=== PATIENT | female | born 1985 | race Caucasian/White ===

== ENCOUNTER 2020-10-20 03:36 | Inpatient (IN) | payer SELFPAY ==
[2020-10-20] MEDS ORDERED: cefTRIAXone\\ROCEPHIN 1 GM VIAL ONE (05:17)
[2020-10-20] MEDS ORDERED: HYDROcodone/Acetaminophen 5/325 mg Tablet PO PRN (05:27)
[2020-10-20] MEDS ORDERED: Promethazine HCl 12.5 MG in Sodium Chloride 0.9% 50 ML IVPB PRN (05:27)
[2020-10-20] MEDS ORDERED: hydrALAZINE 20 MG/ML VIAL SLOW IVP PRN (05:27)
[2020-10-20] MEDS ORDERED: Guaifenesin DM 100-10/5 ML UDCUP PO PRN (05:27)
[2020-10-20] MEDS ORDERED: Ondansetron PF 4 MG/2 ML Vial IVP PRN (05:27)
[2020-10-20] MEDS ORDERED: Acetaminophen 325 MG TAB PO PRN (05:27)
[2020-10-20] MEDS ORDERED: cloNIDine 0.1 MG TAB PO PRN (05:27)
[2020-10-20] MEDS ORDERED: Labetalol HCl 100 MG/20 ML VIAL SLOW IVP PRN (05:27)
[2020-10-20] MEDS ORDERED: Electrolyte Replacement Protocol 1 EACH FS SCH (05:30)
--- NOTE | 2020-10-20 05:38 | PDOC.HHP ---
Hospitalist HPI - History of Present Illness weakness, fatigue History of Present Illness: Patient is a 35 year old female transferred from [place] for symptomatic anemia. Patient has a medical history of gastric bypass done in 2010, she recently moved back to [place] to live with family and has not been taking her recommended b12 and other vitamins for over a year, she reports symptoms of weakness, fatigue, shortness of breath, pallor for a month or so. Patient has a history of chronic anemia due to gastric bypass surgery. She reportedly gets blood transfusions approximately every 6 months when she becomes symptomatic. She reports that she has not had a transfusion in at least 2 years due to social situations and lack of insurance. Patient recently relocated to this area to live with family while she goes through divorce. She reports that her family became more concerned about her condition when she came to live with them a few days ago. Patient has not had a menstrual period for least 6 months. Labs from transferring facility notable for hgb 4, positive UA. patient to be admitted for transfusion and anemia management. she denies melena/hematochezia Hospitalist ROS - Review of Systems Constitutional: reports: weakness. denies: fever, chills, sweats, malaise, other Eyes: denies: pain, vision change, conjunctivae inflammation, eyelid inflammation, redness, other ENT: denies: ear pain, ear discharge, nose pain, nose discharge, nose congestion, mouth pain, mouth swelling, throat pain, throat swelling, other Respiratory: reports: shortness of breath. denies: cough, dry, hemoptysis, SOB with excertion, pleuritic pain, sputum, wheezing, other Cardiovascular: denies: chest pain, palpitations, orthopnea, paroxysmal noc. dyspnea, edema, light headedness, other Gastrointestinal: denies: nausea, vomiting, abdominal pain, diarrhea, constipation, melena, hematochezia, other Genitourinary: denies: dysuria, frequency, incontinence, hematuria, retention, other Musculoskeletal: denies: neck pain, shoulder pain, arm pain, back pain, hand pain, leg pain, foot pain, other Skin: reports: other (pallor). denies: rash, lesions, gena, bruising Neurological: denies: weakness, numbness, incoordination, change in speech, confusion, seizures, other All other systems reviewed; all pertinent +/- noted in HPI/Subj Hospitalist History - Past Medical History Other Medical History: gastric bypass related b12 deficiency anemia CHF - Past Surgical History Other Surgical History: gastric bypass DNC x2 Surgical history of section Notes: x3 Surgical history of gastric bypass Surgical history of laparotomy Surgical history of tonsillectomy. - Family History Family History: reports: no pertinent history - Social History Tobacco Type: cigarettes Drugs: reports: methamphetamine - Exam General Appearance: NAD, awake alert General - other findings: pale Eye: PERRL, anicteric sclera ENT: normocephalic atraumatic, no oropharyngeal lesions, moist mucosa Neck: supple, symmetric, no JVD, no thyromegaly, no lymphadenopathy, no carotid bruit Heart: RRR, no murmur, no gallops, no rubs, normal peripheral pulses Respiratory: CTAB, no wheezes, no rales, no ronchi, normal chest expansion, no tachypnea, normal percussion Gastrointestinal: soft, non-tender, non-distended, normal bowel sounds, no palpable masses, no hepatomegaly, no splenomegaly, no bruit Extremities: no cyanosis, no clubbing, no edema Skin: normal turgor, no lesions, no rashes Neurological: cranial nerve grossly intact, normal sensation to touch, no weakness, no focal deficits, no new deficit Musculoskeletal: normal tone, normal strength, no muscle wasting Psychiatric: normal affect, normal behavior, A&O x 3 Hospitalist Results - Labs Additional comment: VITAL SIGNS SunOct 20, 2020 03:41 MARINA Warner Cory BP: 111/67 Pulse: 76 Resp: 18 Temp: 98.4 (Oral) Pain: 0 O2 sat: 100 on (Room Air) Time: 10/20/2020 03:41. labs, ED documents, imaging reports reviewed Hospitalist H&P A/P - Plan Plan: Patient is a 35 year old female transferred from [place] for symptomatic anemia. # symptomatic anemia # b12 deficiency secondary to gastric bypass history of gastric bypass and has not been taking her recommended b12 and other vitamins for over a year, she reports symptoms of weakness, fatigue, shortness of breath, pallor for a month or so. She gets blood transfusions approximately every 6 months when she becomes symptomatic, however has not had one in 2 years due to social situations and lack of insurance. Labs from transferring facility notable for hgb 4, positive UA. patient to be admitted for transfusion and anemia management. - admit to floor - recheck cbc/cross match - transfuse 2u pRBC - likely will need 6-7 units total based on previous admissions - b12/iron panel ordered # amenorrhea no menstration in 6 months or so, likely due to nutrition but will order test - follow urine test # UTI - found on outside hospital UA - ceftriaxone - urine culture DVT ppx - SCD full code
[2020-10-20 06:13] LABS: Hemoglobin 4.6 g/dL (12.0-16.0); Mean Corpuscular Hemoglobin 15.5 pg (27.0-31.0); Mean Corpuscular Volume 59.6 fL (78.0-98.0); Platelet Count 192 thou/uL (130-400); RBC Distribution Width 20.5 % (11.5-14.5); Red Blood Cell (RBC) Count 2.96 mill/uL (4.20-5.40); Reflex for Review?? YES; White Blood Cell (WBC) Count 6.9 thou/uL (4.8-10.8)
[2020-10-20 06:29] LABS: Iron 11 ug/dL (50-170); Iron Binding Capacity, Total 521 mcg/dL (265-497)
[2020-10-20 06:31] LABS: #Basophils 0.1 thou/uL (0.0-0.2); #Lymphocytes 1.7 thou/uL (1.20-3.40); #Monocytes 0.4 thou/uL (0.11-0.59); #Neutrophils 4.7 thou/uL (1.40-6.50); %Basophils 1.1 % (0.0-1.0); %Eosinophils 0.6 % (0.0-10.0); %Lymphocytes 24.9 % (21.0-51.0); %Monocytes 5.5 % (0.0-10.0); %Neutrophils 67.9 % (42.0-75.0); Hypochromia MODERATE=16-30 cells (100X) (0-5/hpf); Lymphocytes 22 % (21-51); MDiff Complete? YES; Monocytes 1 % (0-10); Neutrophil 77 % (42-75); Platelet Morphology Comment Appears Adequate
[2020-10-20 06:57] LABS: #Monocytes 0.4 thou/uL (0.11-0.59); #Neutrophils 5.4 thou/uL (1.40-6.50); %Basophils 0.5 % (0.0-1.0); %Eosinophils 0.6 % (0.0-10.0); %Monocytes 5.3 % (0.0-10.0); %Neutrophils 68.6 % (42.0-75.0); Hemoglobin 4.5 g/dL (12.0-16.0); Hypochromia MODERATE=16-30 cells (100X) (0-5/hpf); INR-International Normal Ratio 1.1; Lymphocytes 18 % (21-51); MDiff Complete? YES; Mean Corpuscular HGB CONC 25.7 g/dL (32.0-36.0); Mean Corpuscular Volume 58.4 fL (78.0-98.0); Mean Platelet Volume 8.9 fL (7.4-10.4); Monocytes 6 % (0-10); Neutrophil 76 % (42-75); Platelet Count 198 thou/uL (130-400); Platelet Morphology Comment Appears Adequate; Prothrombin Time 14.7 sec (12.0-14.7); RBC Distribution Width 20.3 % (11.5-14.5); Red Blood Cell (RBC) Count 2.97 mill/uL (4.20-5.40); Reflex for Review?? NO; White Blood Cell (WBC) Count 7.8 thou/uL (4.8-10.8)
[2020-10-20 07:00] LABS: Ferritin Less than 2.00 ng/mL (10-291); Vitamin B12 281 pg/mL (211-911)
--- NOTE | 2020-10-20 07:38 | RAD ---
XR Chest 1 View Portable History: Dyspnea Comparison: None. Findings: Lungs are clear. No pneumothorax or effusion. Cardiac silhouette and mediastinal contours a re within normal limits. Impression: No acute intrathoracic abnormality.
[2020-10-20 07:48] LABS: Bacteria/HPF 4+ HPF (None Seen); Bilirubin Negative (Negative); Blood, Urine Negative (Negative); Clarity Turbid (Clear); Glucose, Urine (Dipstick) Normal (Negative); Ketone, Urine Negative (Negative); Leukocyte 250 Leu/uL (Negative); Nitrite 2+ (Negative); Protein, Urine (Dipstick) Negative (Neg-Trace); RBC/HPF 0-3 HPF (0-3); Specific Gravity, Urine 1.016 (1.002-1.036); Urobilinogen Normal mg/dL (Less than 2)
[2020-10-20 07:49] LABS: Pregnancy Test - Urine (BHCG) Negative (Negative); Pregu Control Background? CLEAR/WHITE (CLR/WHITE); Pregu Control Bar Appear? YES (CONTROL BAR); Specific Gravity 1.016 (1.002-1.036)
[2020-10-20] MEDS ORDERED: Calcium/Multivitamins W-Iron 1 TAB TAB PO SCH (09:00)
[2020-10-20 10:50] VITALS: BMI 19.5
--- NOTE | 2020-10-20 12:01 | PDOC.HOSPP ---
- Subjective Encounter Date: 10/20/20 Encounter Time: 11:47 Subjective: no complaints! - Objective Vital Signs & Weight: Vital Signs (12 hours) Temp Pulse Pulse Resp BP BP Pulse Ox 10/20/20 10:48 97.6 F 78 16 113/75 10/20/20 09:15 98.2 F 77 16 104/61 100 10/20/20 08:34 97.8 F 82 16 101/65 100 Weight Weight 107 lb I&O: 10/19/20 10/20/20 10/21/20 06:59 06:59 06:59 Intake Total 0 Balance 0 Result Diagrams: 10/20/20 05:58 - Exam Eye - other findings: pale mucous membranes Neck: supple Heart: RRR, no murmur Respiratory: CTAB Gastrointestinal: soft, non-tender, non-distended, normal bowel sounds Extremities: no edema Hosp A/P (1) HIRA (iron deficiency anemia) Code(s): D50.9 - IRON DEFICIENCY ANEMIA, UNSPECIFIED Status: Acute (2) Status post gastric surgery Code(s): Z98.890 - OTHER SPECIFIED POSTPROCEDURAL STATES Status: Chronic (3) UTI (urinary tract infection) Status: Acute Qualifiers: Hematuria presence: without hematuria - Plan transfusion in progress, target Hg 7 will give iv iron post transfusion urine C&S
[2020-10-20] MEDS: Cyanocobalamin 1000 MCG/ML VIAL IM SCH (12:09)
[2020-10-20] MEDS: Famotidine 20 MG TAB PO SCH ×2 (12:09→20:19)
[2020-10-20 13:13] LABS: Hemoglobin 7.1 g/dL (12.0-16.0); Platelet Count 177 thou/uL (130-400)
[2020-10-20 18:07] LABS: Hemoglobin 8.6 g/dL (12.0-16.0); Platelet Count 205 thou/uL (130-400)
[2020-10-20 23:46] LABS: Hemoglobin 7.8 g/dL (12.0-16.0); Platelet Count 175 thou/uL (130-400)
[2020-10-21] MEDS: cefTRIAXone\\ROCEPHIN 1 GM in Sodium Chloride 0.9% 100 ML IVPB SCH (05:07)
[2020-10-21 06:06] LABS: INR-International Normal Ratio 1.1; Prothrombin Time 14.1 sec (12.0-14.7)
[2020-10-21 06:20] LABS: #Basophils 0.1 thou/uL (0.0-0.2); #Eosinphils 0.1 thou/uL (0.0-0.7); #Lymphocytes 1.7 thou/uL (1.20-3.40); #Monocytes 0.6 thou/uL (0.11-0.59); #Neutrophils 3.9 thou/uL (1.40-6.50); %Basophils 1.1 % (0.0-1.0); %Eosinophils 1.1 % (0.0-10.0); %Lymphocytes 26.3 % (21.0-51.0); %Monocytes 9.6 % (0.0-10.0); %Neutrophils 61.9 % (42.0-75.0); Hemoglobin 7.7 g/dL (12.0-16.0); Mean Corpuscular HGB CONC 29.1 g/dL (32.0-36.0); Mean Corpuscular Hemoglobin 20.1 pg (27.0-31.0); Mean Corpuscular Volume 69.1 fL (78.0-98.0); Mean Platelet Volume 7.9 fL (7.4-10.4); Platelet Count 170 thou/uL (130-400); RBC Distribution Width 26.8 % (11.5-14.5); Red Blood Cell (RBC) Count 3.83 mill/uL (4.20-5.40); White Blood Cell (WBC) Count 6.4 thou/uL (4.8-10.8)
[2020-10-21 06:24] LABS: Anion Gap 11 mmol/L (10-20); BUN (Urea Nitrogen) 9 mg/dL (7.0-18.7); Calc. Creatinine Clearance 106 mL/min (70-130); Calcium 8.1 mg/dL (7.8-10.44); Carbon Dioxide 26 mmol/L (22-29); Chloride 107 mmol/L (98-107); Glucose 91 mg/dL (70-105); Potassium 3.8 mmol/L (3.5-5.1); Sodium 140 mmol/L (136-145)
[2020-10-21] MEDS ORDERED: Magnesium 2 GM/50 ML 2 GM in Premix Bag 1 BAG IVPB SCH (07:30)
[2020-10-21] MEDS: Multivit, Therapeutic 1 TAB PO SCH (09:05)
[2020-10-21] MEDS: Famotidine 20 MG TAB PO SCH ×2 (09:05→20:14)
[2020-10-21] MEDS: Cyanocobalamin 1000 MCG/ML VIAL IM SCH (09:06)
--- NOTE | 2020-10-21 10:19 | PDOC.HOSPP ---
- Subjective Encounter Date: 01/14/21 Encounter Time: 10:14 Subjective: feels fine ` ``````````````````````````````````````````````` ```````````````````````````````````````````````````````````````````````````````` ```````````````````` ```````````````````````````````````````````````````````````````````````````````` ```````````````````` ```````````````````````````````````````````````````````````````````````````````` ```````````````````` ```````````````````````````````````````````````````````````````````````````````` ```````````````````` ```````````````````````````````````````````````````````````````````````````````` ```````````````````` ```````````````````````````````````````````````````````````````````````````````` ```````````````````` ```````````````````````````````````````````````````````````````````````````````` ```````````````````` ```````````````````````````````````````````````````````````````````````````````` ```````````````````` ```````````````````````````````````````````````````````````````````````````````` ```````````````````` ```````````````````````````````````````````````````````````````````````````````` ```````````````````` ```````````````````````````````````````````````````````````````````````````````` ```````````````````` ```````````````````````````````````````````````````````````````````````````````` ```````````````````` ```````````````````````````````````````````````````````````````````````````````` ```````````````````` ```````````````````````````````````````````````````````````````````````````````` ```````````````````` ```````````````````````````````````````````````````````````````````````````````` ```````````````````` ```````````````````````````````````````````````````````````````````````````````` ```````````````````` ```````````````````````````````````````````````````````````````````````````````` ```````````````````` ```````````````````````````````````````````````````````````````````````````````` ```````````````````` ```````````````````````````````````````````````````````````````````````````````` ```````````````````` ```````````````````````````````````````````````````````````````````````````````` ```````````````````` ```````````````````````````````````````````````````````````````````````````````` ```````````````````` ```````````````````````````````````````````````````````````````````````````````` ```````````````````` ```````````````````````````````````````````````````````````````````````````````` ```````````````````` ```````````````````````````````````````````````````````````````````````````````` ```````````````````` ```````````````````````````````````````````````````````````````````````````````` ```````````````````` ```````````````````````````````````````````````````````````````````````````````` ```````````````````` ```````````````````````````````````````````````````````````````````````````````` ```````````````````` ```````````````````````````````````````````````````````````````````````````````` ```````````````````` ```````````````````````````````````````````````````````````````````````````````` ```````````````````` ```````````````````````````````````````````````````````````````````````````````` ```````````````````` ```````````````````````````````````````````````````````````````````````````````` ```````````````````` ```````````````````````````````````````````````````````````````````````````````` ```````````````````` ```````````````````````````````````````````````````````````````````````````````` ```````````````````` ```````````````````````````````````````````````````````````````````````````````` ```````````````````` ```````````````````````````````````````````````````````````````````````````````` ```````````````````` ```````````````````````````````````````````````````````````````````````````````` ```````````````````` ```````````````````````````````````````````````````````````````````````````````` ```````````````````` ```````````````````````````````````````````````````````````````````````````````` ```````````````````` ```````````````````````````````````````````````````````````````````````````````` ```````````````````` ```````````````````````````````````````````````````````````````````````````````` ```````````````````` ```````````````````````````````````````````````````````````````````````````````` ``````````````````````````````````fee - Objective Vital Signs & Weight: Vital Signs (12 hours) Temp Pulse Resp BP Pulse Ox 10/21/20 08:00 98.6 F 67 16 110/67 99 10/21/20 03:39 97.9 F 70 16 101/65 99 10/20/20 23:14 98.1 F 68 16 104/67 99 Weight Weight 107 lb I&O: 10/20/20 10/21/20 10/22/20 06:59 06:59 06:59 Intake Total 2380 Balance 2380 Result Diagrams: 10/21/20 05:31 10/21/20 05:31 Hospitalist ROS - Medication Medications: Active Medications Generic Name Dose Route Start Last Admin Trade Name Natasha PRN Reason Stop Dose Admin Cyanocobalamin 1,000 mcg 10/20/20 09:00 10/21/20 09:06 Cyanocobalamin 1000 Mcg/Ml Vial IM 1,000 mcg Q24HR DORIS Administration Famotidine 20 mg 10/20/20 09:00 10/21/20 09:05 Famotidine 20 Mg Tab PO 20 mg BID DORIS Administration Ceftriaxone Sodium 1 gm/ 100 mls @ 200 mls/hr 10/21/20 05:30 10/21/20 05:07 Sodium Chloride IVPB 100 mls Q24HR DORIS Administration Magnesium Sulfate 2 gm/ Device 50 mls @ 50 mls/hr 10/21/20 07:30 10/21/20 09:05 IVPB 10/21/20 11:00 50 mls NOW DORIS Administration Multivitamins 1 tab 10/21/20 09:00 10/21/20 09:05 Multivit, Therapeutic 1 Tab PO 1 tab DAILY DORIS Administration Sodium Chloride 10 ml 10/20/20 09:00 10/21/20 09:06 Flush - Normal Saline 10 Ml Syringe IVF 10 ml Q12HR DORIS Administration - Exam General Appearance: awake alert Neck: no JVD Heart: RRR Respiratory: CTAB Gastrointestinal: soft, normal bowel sounds Extremities: no edema Hosp A/P (1) HIRA (iron deficiency anemia) Code(s): D50.9 - IRON DEFICIENCY ANEMIA, UNSPECIFIED Status: Acute (2) Status post gastric surgery Code(s): Z98.890 - OTHER SPECIFIED POSTPROCEDURAL STATES Status: Chronic (3) UTI (urinary tract infection) Status: Acute Qualifiers: Hematuria presence: without hematuria - Plan Hg adquate give 2 doses iv iron probable DC 10/22
[2020-10-21] MEDS: Iron, Sodium Ferric Gluconate 250 MG in Sodium Chloride 0.9% 100 ML IVPB SCH (13:40)
[2020-10-21] MEDS ORDERED: FLU VACC QS2020-21(6MOS UP)/PF 60 MCG/0.5 ML SYRINGE IM ONE (14:15)
[2020-10-21] MEDS ORDERED: Iron, Sodium Ferric Gluconate 250 MG in Sodium Chloride 0.9% 100 ML IVPB SCH (21:00)
[2020-10-22] MEDS: Iron, Sodium Ferric Gluconate 250 MG in Sodium Chloride 0.9% 100 ML IVPB SCH (02:59)
[2020-10-22] MEDS: cefTRIAXone\\ROCEPHIN 1 GM in Sodium Chloride 0.9% 100 ML IVPB SCH (04:55)
[2020-10-22 05:43] LABS: INR-International Normal Ratio 1.1; Prothrombin Time 14.1 sec (12.0-14.7)
[2020-10-22] MEDS ORDERED: diphenhydrAMINE 25 MG CAP PO PRN (05:43)
[2020-10-22 06:00] LABS: Anion Gap 14 mmol/L (10-20); BUN (Urea Nitrogen) 8 mg/dL (7.0-18.7); Calc. Creatinine Clearance 105 mL/min (70-130); Calcium 8.3 mg/dL (7.8-10.44); Carbon Dioxide 25 mmol/L (22-29); Chloride 106 mmol/L (98-107); Glucose 98 mg/dL (70-105); Potassium 3.6 mmol/L (3.5-5.1); Sodium 141 mmol/L (136-145)
[2020-10-22 06:06] LABS: #Eosinphils 0.2 thou/uL (0.0-0.7); #Lymphocytes 2.2 thou/uL (1.20-3.40); #Monocytes 0.8 thou/uL (0.11-0.59); %Basophils 0.5 % (0.0-1.0); %Eosinophils 2.1 % (0.0-10.0); %Lymphocytes 23.6 % (21.0-51.0); %Monocytes 8.6 % (0.0-10.0); %Neutrophils 65.2 % (42.0-75.0); Hemoglobin 8.3 g/dL (12.0-16.0); Mean Corpuscular HGB CONC 28.2 g/dL (32.0-36.0); Mean Corpuscular Hemoglobin 19.3 pg (27.0-31.0); Mean Corpuscular Volume 68.4 fL (78.0-98.0); Mean Platelet Volume 8.8 fL (7.4-10.4); Platelet Count 195 thou/uL (130-400); RBC Distribution Width 27.4 % (11.5-14.5); Red Blood Cell (RBC) Count 4.31 mill/uL (4.20-5.40); White Blood Cell (WBC) Count 9.1 thou/uL (4.8-10.8)
[2020-10-22] MEDS ORDERED: Magnesium 2 GM/50 ML 2 GM in Premix Bag 1 BAG IVPB SCH (06:30)
[2020-10-22] MEDS ORDERED: Lorazepam 2 MG/ML VIAL SLOW IVP SCH (06:45)
[2020-10-22] MEDS: Multivit, Therapeutic 1 TAB PO SCH (08:20)
[2020-10-22] MEDS: Famotidine 20 MG TAB PO SCH (08:20)
[2020-10-22] MEDS: Cyanocobalamin 1000 MCG/ML VIAL IM SCH (09:12)
[2020-10-22 12:02] VITALS: BP 114/73; TEMP 98.2
--- NOTE | 2020-10-24 18:13 | DIS ---
DATE OF ADMISSION: 10/20/2020 DATE OF DISCHARGE: 10/22/2020 PRIMARY CARE PROVIDER: Out of [facility] physician. FINAL DIAGNOSES: Severe iron deficiency anemia, urinary tract infection due to gram-negative cedric, status post gastric bypass in the past. DISCHARGE MEDICATIONS: Cefdinir 300 mg p.o. b.i.d. x7 days. DIET: As tolerated. ALLERGIES: NO KNOWN ALLERGIES. CODE STATUS: Full. PENDING AT TIME OF DISCHARGE: Final sensitivities on gram-negative cedric. HOSPITAL COURSE: The patient admitted to [facility] through the emergency room with severe anemia. On admission, her hemoglobin was 4.5, she was transfused, final hemoglobin is 8.3. She had severe microcytic microchromic indices. Iron levels were remarkably low at 11, TIBC 521. Her ferritin less than 2. Vitamin B12 was normal. Chemistries were adequate. The patient has had a gastric bypass. She is noncompliant with diet and vitamins. During hospital stay as repeated, she was transfused, she received two doses of IV iron. She is being discharged to follow up with her PCP in 7 days. She [place] a significant distance away. The prescription for cefdinir has been electronically sent to her local pharmacy. She is feeling well. Vital signs are stable. She has been told she needs to return to her PCP and get started on a regimen to hopefully avoid the severe iron deficiency, etc., in future. Job ID: [id number]
--- NOTE | 2020-10-26 13:52 | PQF ---
CLINICAL DOCUMENTATION CLARIFICATION FORM: Dear : KRISHAN ALANIZ MD Date / Time: 10/26/2020 Please exercise your independent, professional judgment in responding to the clarification form. Clinical indicators are provided on the bottom of this form for your review Please check appropriate box(es): [ ] Protein Calorie Malnutrition: [ ] Mild [ ] Moderate [ ] Severe [ ] Other Malnutrition (please specify) [ t ] Underweight without malnutrition [ ] Cachexia [ ] Other diagnosis (Please specify if any) [ ] Unable to determine In addition, please specify: Present on Admission (POA): [r ] Yes [ ] No [ ] Unable to determine Physician Signature: Date/Time For continuity of documentation, please document condition throughout progress notes and discharge summary. Thank You. To be completed by CDI/Coding staff for physician review: Present Clinical Indicators - Signs / Symptoms / Labs Results and Location in Medical Record [x] Malnutrition Miscellaneous on 10/20 [x] BMI of 19.6 Height & weight document history on 10/20 Two or More of the Following ASPEN Criteria: [x] Pt states had a gastric bypass with complications & is now severly malnourished. Emergency room visit on 10/23 [ ] Weight Loss [ ] Loss of Muscle Mass [ ] Loss of Subcutaneous Fat [ ] Localized/Generalized Fluid Accumulation [ ] Diminished Handgrip Strength [x] Symptomatic anemia, B12 deficiency H&P on 10/20 Present Risk Factors Results and Location in Medical Record [x] Weak and fatigue Emergency room visit on 10/23 [ ] Inability to consume adequate caloric intake [ ] Chronic illness cancer, cirrhosis [ ] Medication [ ] PEG tube [ ] Short gut syndrome Present Treatments Results and Location in Medical Record [x] Iron, sodium ferric gluconate Medication on 10/21, 10/22 [x] Multivitamin 1 tab PO Medication on 10/20 [ ] TPN / tube feedings [ ] Assistance with feeding [ ] Appetite stimulant - medication CDS/Commercial Insurance Underwriter Signature: AAS Phone #: Date/Time: 10/26/2020 Moderate Malnutrition (in acute illness) ? Energy Intake: <75% of estimated energy requirement for > 7 days ? Weight Loss: 1-2%/1 week; 5%/ 1 month; 7.5%/3 months ? Other: mild body fat loss; mild muscle mass loss; mild fluid accumulation; Severe Malnutrition (in acute illness) ? Energy Intake: ? 50% of estimated energy requirement for ? 5 days ? Weight Loss: >2%/1 week; >5%/1 month; >7.5%/3 months ? Other: moderate body fat loss; moderate muscle mass loss; moderate- severe fluid accumulation; measurably reduced cigarette tester strength Moderate Malnutrition (in chronic illness) ? Energy Intake: <75% of estimated energy requirement for ?1 month ? Weight Loss: 5%/1 month; 7.5%/3 months; 10%/6 months; 20%/1 year ? Other: mild body fat loss; mild muscle mass loss; mild fluid accumulation Severe Malnutrition (in chronic illness) ? Energy Intake: ?75% of estimated energy requirement for ?1 month ? Weight Loss: >5%/1 month; >7.5%/3 months; >10%/6 months; >20%/1 year ? Other: severe body fat loss; severe muscle mass loss; severe fluid accumulation; measurably reduced cigarette tester strength This is a permanent part of the Medical Record MTDD
== END 2020-10-22 12:16 | disposition home or self-care (01) | DRG 812 ==
LOC: ERS 03:36 → SURG A 07:06
PROVIDERS: ADMIT Internal Medicine; ATTEND Internal Medicine
PROC: 30233N1 Transfusion of Nonautologous Red Blood Cells into Peripheral Vein, Percutaneous Approach (ICD-10-PCS; principal; 2020-10-20)
DX: D50.9 Iron deficiency anemia, unspecified (principal); N39.0 Urinary tract infection, site not specified; Z68.1 Body mass index [BMI] 19.9 or less, adult; I50.9 Heart failure, unspecified; F31.9 Bipolar disorder, unspecified; F17.210 Nicotine dependence, cigarettes, uncomplicated; E53.8 Deficiency of other specified B group vitamins; N91.2 Amenorrhea, unspecified; B96.89 Other specified bacterial agents as the cause of diseases classified elsewhere; Z90.89 Acquired absence of other organs; Z98.84 Bariatric surgery status; Z98.51 Tubal ligation status; R63.6 Underweight
CPT/HCPCS: 36415; 36430; 71045; 80048; 81003; 81015; 81025; 82607; 82728; 83540; 83550; 83735; 85025; 85060; 85610; 85730; 86850; 86900; 86901; 87077; 87086; 87186; 90471; 90662; 96365; G0008; J0696; J2060; J2405; J2916; J3420; J3475; J3490; P9016; Q0163